=== PATIENT | female | born 1975 | race Caucasian/White ===

== ENCOUNTER 2016-11-24 16:25 | Emergency (ER) | payer MEDICAID ==
[2016-11-24 18:57] LABS: HEMOGLOBIN 12.7 gm/dl (12.3-15.3); RED BLOOD COUNT 4.34 M/UL (4.00-5.10); WHITE BLOOD COUNT 7.7 K/UL (4.5-11.0)
[2016-11-24 19:12] LABS: BUN/CREATININE RATIO 22 (0-10)
== END 2016-11-24 23:34 | disposition home or self-care (01) ==
LOC: ER1 16:25
PROVIDERS: Specialist/Technologist Athletic Trainer
DX: R51 Headache (principal); R55 Syncope and collapse; F41.9 Anxiety disorder, unspecified; F17.200 Nicotine dependence, unspecified, uncomplicated; Z88.1 Allergy status to other antibiotic agents; Z79.899 Other long term (current) drug therapy
CPT/HCPCS: 36415; 70450; 71010; 80053; 81001; 84439; 84443; 84703; 85025; 96374; 96375; 99284; J1885; J2765; J7030; Q0163

== ENCOUNTER 2020-09-12 09:46 | Emergency (ER) | payer OTHER ==
[~2020-09-12 09:46] MED LIST: Bromphed DM PO; CLARITIN-D 241 EACH PO; CLARITIN10 MG PO; DECADRON6 MG PO; DOXYCYCLINE HY100 MG PO; FERROUS SULFAT324 MG PO; FLONASE 0.05% N16 GM; IBUPROFEN600 MG PO; NAPROSYN500 MG PO; NORFLEX 100 MG100 MG PO; PERCOCET 5/325 T1 EA PO; SINGULAIR10 MG PO; WELLBUTRIN SR150 MG PO; ZITHROMAX250 MG PO; ZOFRAN4 MG PO; ZYRTEC10 M3 PO
[2020-09-12] MEDS ORDERED: TESSALON PERLE100 MG PO (11:40)
[2020-09-12] MEDS ORDERED: ZOFRAN4 MG PO (11:41)
== END 2020-09-12 12:00 | disposition home or self-care (01) ==
LOC: ER1 09:46
DX: B34.9 Viral infection, unspecified (principal); I10 Essential (primary) hypertension; Z20.822 Contact with and (suspected) exposure to COVID-19; Z88.1 Allergy status to other antibiotic agents; Z79.899 Other long term (current) drug therapy
CPT/HCPCS: 0240U; 87081; 87880; 99283